=== PATIENT | female | born 1955 | race Caucasian/White ===

== ENCOUNTER 2022-03-04 14:23 | Inpatient (IN) | payer BC ==
[~2022-03-04] VITALS: Ht 157.5 cm; Wt 82.6 kg
[2022-03-04 14:37] VITALS: BP_SYST 150
[2022-03-04 15:22] LABS: BASOPHILS # (AUTO) 0.1 K/uL (0.0-0.2); BASOPHILS % (AUTO) 0.4 % (0.0-2.0); HEMATOCRIT 37.1 % (36-48); HEMOGLOBIN 12.6 g/dL (12.0-16.0); LYMPHOCYTES # (AUTO) 1.4 K/uL (1.0-5.5); LYMPHOCYTES % (AUTO) 7.6 % (20.5-51.5); MEAN CORPUSCULAR HEMOGLOBIN 29 pg (27-31); MEAN CORPUSCULAR HGB CONC 34 % (32-36); MEAN CORPUSCULAR VOLUME 85 fL (79.0-98.0); MONOCYTES # (AUTO) 1.6 K/uL (0.0-1.0); MONOCYTES % (AUTO) 8.6 % (1.7-9.3); NEUTROPHILS # (AUTO) 15.5 K/uL (1.8-7.7); NEUTROPHILS % (AUTO) 83.4 % (40.0-70.0); PLATELET COUNT (AUTO) 274 K/uL (130-430); RED BLOOD CELL COUNT(AUTO) 4.39 MIL/uL (4.2-6.2); RED CELL DISTRIBUTION WIDTH 13.9 % (9.0-15.0); WHITE BLOOD COUNT (AUTO) 18.6 K/uL (4.8-10.8)
[2022-03-04 15:30] LABS: CALCIUM 9.7 mg/dL (8.4-11.0); CREATININE 1.61 mg/dL (0.55-1.30)
[2022-03-04 15:36] LABS: ALBUMIN 3.4 g/dL (3.4-4.8); TOTAL BILIRUBIN 1.5 mg/dL (0.0-1.0)
[2022-03-04 15:39] LABS: BILIRUBIN,URINE 1+ (NEGATIVE); BLOOD, URINE 3+ (NEGATIVE); GLUCOSE,URINE NEGATIVE (NEGATIVE); KETONES,URINE 1+ (NEGATIVE); LEUKOCYTE ESTERASE ,URINE 3+ (NEGATIVE); NITRITE, URINE NEGATIVE (NEGATIVE); PROTEIN URINE 2+ (NEGATIVE)
[2022-03-04 15:50] LABS: CLARITY/URINE HAZY (CLEAR); COLOR,URINE AMBER (YELLOW)
[2022-03-04 15:51] LABS: BACTERIA,URINE MANY /HPF (None Seen); RBC,URINE 0-3 /HPF (0-3); WBC,URINE 80-100 /HPF (0-3)
[2022-03-04 15:52] LABS: MUCUS,URINE None Seen /LPF (None Seen)
[2022-03-04] MEDS ORDERED: PIPERACILLIN/TAZO 3.375 GM in NS 50 ML IV ONE (16:00)
[2022-03-04] MEDS ORDERED: NACL 0.9% 1,000 ML IV ONE (16:00)
--- NOTE | 2022-03-04 16:10 | NUR ---
Dr Fang evaluating patient in the triage room
[2022-03-04] MEDS ORDERED: KETOROLAC TROMETHAMINE 30 MG VIAL IVP ONE (16:15)
--- NOTE | 2022-03-04 16:35 | NUR ---
Pt brought by self, A&Ox4, pt presents to ER with L lower abdominal pain radiating to the back, pt afebrile, skin pink and warm , cap refill <3, will cont to monitor
[2022-03-04] MEDS ORDERED: ONDANSETRON HCL 4 MG/2 ML VIAL IVP PRN (16:45)
[2022-03-04] MEDS ORDERED: PIPERACILLIN/TAZOBACTAM 3.375 GM/VIAL (ZOSYN) IV ONE (17:47)
--- NOTE | 2022-03-04 18:30 | NUR ---
Patient to ER bed H1 to gown for evaluation. Side rails up.
--- NOTE | 2022-03-04 19:10 | NUR ---
Pt administered as ordered, well tolerated, will cont to monitor
--- NOTE | 2022-03-04 19:29 | NUR ---
Report given to Nora CARRANZA
[2022-03-04] MEDS: NACL 0.9% 1,000 ML IV SCH (20:30)
--- NOTE | 2022-03-04 20:31 | NUR ---
CARE ASSUMED AT 1925, PATIENT RESTING IN BED, UPDATED ON PLAN OF CARE, AWARE WILL BE ADMITTED TO THE HOSPITAL AWAITING ROOM ASSIGNMENT. NO S/S OF ANY DISTRESS NOTED AT THIS TIME. IVF INFUSING PER ORDER, WILL CONTINUE TO MONITOR.
[2022-03-04] MEDS ORDERED: DEXTROSE 50% JECT 50 ML DISP.SYRIN IVP PRN (22:00)
[2022-03-04] MEDS ORDERED: INSULIN REGULAR, HUMAN 100 UNITS/ML, 3 ML VIAL (humuLIN R) SUBCUT PRN (22:00)
[2022-03-04] MEDS ORDERED: cloNIDine HCL 0.1 MG TABLET PO PRN (22:00)
[2022-03-05] VITALS: BP_SYST 125
--- NOTE | 2022-03-05 | NUR ---
Resting in [facility] still in the hallway. No beds available in telemetry unit.
[2022-03-05] MEDS ORDERED: PIPERACILLIN/TAZOBACTAM 3.375 GM/VIAL (ZOSYN) IV ONE (01:05)
[2022-03-05] MEDS: PIPERACILLIN/TAZO 3.375/DEX-IS 50 ML IV SCH ×4 (01:06→17:01)
[2022-03-05] MEDS: NACL 0.9% 1,000 ML IV SCH ×3 (02:45→19:57)
[2022-03-05] MEDS: MORPHINE 4 MG INJ. 4 MG/ML VIAL IVP PRN ×2 (03:00→11:58)
--- NOTE | 2022-03-05 03:00 | NUR ---
Patient c/o Left sided abdominal pain 8/ and requesting pain medication. Morphine 4 mg ivp given as per MD orders. will continue to monitor patient for medication effectiveness.
[2022-03-05 04:00] VITALS: BP_SYST 132
[2022-03-05 04:44] LABS: INR 1.2 (0.8-1.2); PROTHROMBIN TIME 11.6 SECS (9.5-12.5)
[2022-03-05 04:45] LABS: ALBUMIN 2.9 g/dL (3.4-4.8); CALCIUM 8.3 mg/dL (8.4-11.0); CREATININE 1.74 mg/dL (0.55-1.30); TOTAL BILIRUBIN 1.4 mg/dL (0.0-1.0); URIC ACID 4.7 mg/dL (2.4-7.0)
--- NOTE | 2022-03-05 05:23 | NUR ---
Patient placed in ER bed 2 for comfort. resting comfortably at this time. Reported no pain currently.
--- NOTE | 2022-03-05 06:00 | NUR ---
CONSULTATION PAGED/CALLED Reason for Consultation: SEPSIS Person Who was Notified: YASH Consulting Physician: Rosalina COREAS Trucksmith Specialty: Ordering Physician: JAVIER
[2022-03-05 07:51] LABS: BASOPHILS # (AUTO) 0.1 K/uL (0.0-0.2); BASOPHILS % (AUTO) 0.4 % (0.0-2.0); EOSINOPHILS # (AUTO) 0.1 K/uL (0.0-0.4); EOSINOPHILS % (AUTO) 0.5 % (0.0-4.0); HEMOGLOBIN 11.5 g/dL (12.0-16.0); LYMPHOCYTES # (AUTO) 1.1 K/uL (1.0-5.5); LYMPHOCYTES % (AUTO) 7.9 % (20.5-51.5); MEAN CORPUSCULAR HEMOGLOBIN 29 pg (27-31); MEAN CORPUSCULAR HGB CONC 34 % (32-36); MEAN CORPUSCULAR VOLUME 85 fL (79.0-98.0); MONOCYTES # (AUTO) 1.2 K/uL (0.0-1.0); MONOCYTES % (AUTO) 8.8 % (1.7-9.3); NEUTROPHILS # (AUTO) 11.7 K/uL (1.8-7.7); NEUTROPHILS % (AUTO) 82.4 % (40.0-70.0); PLATELET COUNT (AUTO) 216 K/uL (130-430); RED BLOOD CELL COUNT(AUTO) 3.98 MIL/uL (4.2-6.2); RED CELL DISTRIBUTION WIDTH 13.9 % (9.0-15.0); WHITE BLOOD COUNT (AUTO) 14.2 K/uL (4.8-10.8)
--- NOTE | 2022-03-05 08:03 | NUR ---
Recieved report from DILLON Pritchett. Pt is alert and oriented x4. Zosyn ABX completed. Pt VSS. Pain level reported at 08/29. IV not flowing. Discontinued IV.
[2022-03-05] MEDS ORDERED: MORPHINE 4 MG INJ. 4 MG/ML VIAL ONE (08:14)
--- NOTE | 2022-03-05 08:35 | NUR ---
Spoke to pt gonzalo Salas, pt gave permission to disclose status.
--- NOTE | 2022-03-05 08:44 | NUR ---
Patient will be admitted to care of [facility]. Admitted to Medsurg unit. Belongings list completed. Complete and up to date summary report printed. SBAR report to be given at bedside with opportunity for questions.
--- NOTE | 2022-03-05 08:45 | NUR ---
Admit bed requested Patient will be admitted to care of . Admitted to Medsurg unit. Diagnosis acute pyelonephritis and hydronephrolosis Inpatient (Yes or No) y Observation (Yes or No) n Orientation concerns or request close to nursing station (Yes or No) n Covid Status neg On vent or bipap n Isolation requirements n Needs a sitter n From Home (Yes or if No enter name of facility) home Requires Dialysis (Yes or No) n Med Rec Completed (Yes of No) pending
--- NOTE | 2022-03-05 08:56 | NUR ---
Patient states unknown medication will await daughter to bring information to the hospital.
--- NOTE | 2022-03-05 08:57 | NUR ---
Diabetic tray served. per MD order. Pt sitting up repositioned without complaint.
--- NOTE | 2022-03-05 10:21 | NUR ---
CONSULTATION PAGED REASON FOR CONSULTATION:HYDRONEPHROSIS , KIDNEY STONE WAS CONSULT CALLED?Y PERSON WHO WAS NOTIFIED:VOICEMAIL LEFT WITH ADRIAN HERRERA CONSULTING PHYSICIAN:ADRIAN HERRERA CHEMISTRY LAB INSTRUCTOR SPECIALTY:UROLOG CHEMISTRY LAB INSTRUCTOR PHONE NUMBER:[phone] REQUESTING PHYSICIAN:RONAL LAI
--- NOTE | 2022-03-05 10:29 | NUR ---
Patient will be [facility]. Admitted to MED Surg unit. Will go to room 135A. Belongings list completed. Complete and up to date summary report printed. SBAR report to be given at bedside with opportunity for questions.
[2022-03-05 11:00] VITALS: BP_SYST 142
[2022-03-05] MEDS: LACTOBACILLUS RHAMNOSUS GG 1 CAP CAPSULE PO SCH ×2 (11:58→21:02)
[2022-03-05] MEDS: DOCUSATE SODIUM 250 MG CAPSULE PO SCH ×2 (11:58→21:03)
[2022-03-05] MEDS ORDERED: ROSU10TA2 PO (12:41)
[2022-03-05] MEDS ORDERED: LOSA100T23 PO (12:41)
[2022-03-05] MEDS ORDERED: ZOLP5TAB2 PO (12:41)
[2022-03-05] MEDS ORDERED: NEU300 PO (12:41)
[2022-03-05] MEDS ORDERED: MAG-AL HYDROX/SIMETH 30 ML UDC PO PRN (16:15)
[2022-03-05] MEDS ORDERED: DIPHENHYDRAMINE INJ 50 MG/ML VIAL IVP PRN (16:15)
--- NOTE | 2022-03-05 16:29 | NUR ---
CONSULTATION PAGED REASON FOR CONSULTATION:LEFT URETERL STONE WAS CONSULT CALLED?Y PERSON WHO WAS NOTIFIED:LEFT A VOICEMAIL WITH AWA CHUA CONSULTING PHYSICIAN:AWA CHUA TEACHER ASSISTANT SPECIALTY:INTERVENTIONAL RADIOLOGY TEACHER ASSISTANT PHONE NUMBER:[phone] REQUESTING PHYSICIAN:ADRIAN HERRERA
[2022-03-05] MEDS ORDERED: PANTOPRAZOLE SODIUM 40 MG/VIAL (PROTONIX) IVP ONE (16:30)
--- NOTE | 2022-03-05 17:41 | NUR ---
1100: ADMITTED UNDER THE CARE OF DR. HERRERA. NO C/O ANY PAIN OR DISCOMFORT @ THIS TIME. CONSULTED WITH ADRIAN SINGH AND DR. Rosalina COREAS, MDS WAS CALLED 1230: STARTED ON IV ANTIBIOTIC ORDERED WILL ASSESS FOR ANY ADVERSE REACTION. 1500: NO ADVERSE REACTION FROM IV ANTIBIOTIC NOTED. 1630: C/O BEING ITCHY DUE TO CONTACT WITH FAMILY MEMBER WHO HAS PET @ HOME AND DYSPEPSIA DR. HERRERA MADE AWARE WITH NEW ORDER NOTED AND CARRIED OUT ORDERED.
[2022-03-05 20:00] VITALS: BP_SYST 110
[2022-03-05] MEDS: GABAPENTIN 300 MG CAPSULE PO SCH (21:03)
[2022-03-05] MEDS: ZOLPIDEM TARTRATE 5 MG TABLET PO PRN (21:09)
[2022-03-06 00:05] VITALS: BP_SYST 118
[2022-03-06] MEDS: PIPERACILLIN/TAZO 3.375/DEX-IS 50 ML IV SCH ×4 (00:16→22:03)
--- NOTE | 2022-03-06 01:30 | NUR ---
rounds Dr. Watts (ID) rounds. changed frequency of IV antibiotic.
[2022-03-06] MEDS: NACL 0.9% 1,000 ML IV SCH ×3 (04:12→15:28)
[2022-03-06] MEDS: MORPHINE 4 MG INJ. 4 MG/ML VIAL IVP PRN ×2 (06:26→22:14)
--- NOTE | 2022-03-06 06:26 | NUR ---
Closing notes Pt AAOx4, pt c/o 10/30 abd/back pain. Medicated with Morphine 4mg IVP as needed. Pt is voiding. IVF infusing at ordered rate R.FA 22G clear and patent. Call light within reach. Bed low, locked, siderails up x2. To endorse to AM nurse.
[2022-03-06 07:13] LABS: BASOPHILS # (AUTO) 0.1 K/uL (0.0-0.2); BASOPHILS % (AUTO) 1.3 % (0.0-2.0); EOSINOPHILS # (AUTO) 0.1 K/uL (0.0-0.4); EOSINOPHILS % (AUTO) 1.2 % (0.0-4.0); HEMATOCRIT 32.4 % (36-48); HEMOGLOBIN 11.1 g/dL (12.0-16.0); LYMPHOCYTES # (AUTO) 0.8 K/uL (1.0-5.5); MEAN CORPUSCULAR HEMOGLOBIN 29 pg (27-31); MEAN CORPUSCULAR HGB CONC 34 % (32-36); MEAN CORPUSCULAR VOLUME 86 fL (79.0-98.0); MONOCYTES % (AUTO) 10.9 % (1.7-9.3); NEUTROPHILS # (AUTO) 7.3 K/uL (1.8-7.7); NEUTROPHILS % (AUTO) 77.6 % (40.0-70.0); PLATELET COUNT (AUTO) 245 K/uL (130-430); RED BLOOD CELL COUNT(AUTO) 3.77 MIL/uL (4.2-6.2); RED CELL DISTRIBUTION WIDTH 13.9 % (9.0-15.0); WHITE BLOOD COUNT (AUTO) 9.4 K/uL (4.8-10.8)
[2022-03-06 07:31] LABS: CALCIUM 8.5 mg/dL (8.4-11.0); CREATININE 1.36 mg/dL (0.55-1.30)
[2022-03-06 08:00] VITALS: BP_SYST 110
--- NOTE | 2022-03-06 08:00 | NUR ---
Initial notes Received patient awake in bed, AAOx4. Respiration even and unlabored, no sign of distress. IV fluids running to right forearm. All safety precaution secured, bed in low position an call light w/in reached.
[2022-03-06] MEDS: PANTOPRAZOLE SODIUM 40 MG/VIAL (PROTONIX) IVP SCH (09:00)
[2022-03-06] MEDS: LACTOBACILLUS RHAMNOSUS GG 1 CAP CAPSULE PO SCH ×2 (09:44→21:15)
[2022-03-06] MEDS: DOCUSATE SODIUM 250 MG CAPSULE PO SCH ×2 (09:44→21:15)
[2022-03-06] MEDS: ATORVASTATIN 20 MG TABLET PO SCH (09:45)
[2022-03-06] MEDS: GABAPENTIN 300 MG CAPSULE PO SCH ×3 (09:45→21:15)
[2022-03-06] MEDS: LOSARTAN POTASSIUM 50 MG TABLET (COZAAR) PO SCH (09:46)
[2022-03-06 12:00] VITALS: BP_SYST 116
--- NOTE | 2022-03-06 12:40 | NUR ---
PATIENT SIGNED CONSENT FOR MIDLINE PLACEMENT
--- NOTE | 2022-03-06 14:29 | NUR ---
Dietitian Recommendations * Continue CCHO * Nursing please document PO intakes * Consider additional high-protein/low-carb snacks or Glucerna ONS if PO intakes suboptimal LP, MS, RD Please refer to Nutrition Assessment for details. Addendum: 03/06/22 at [address] Amended: Links added.
--- NOTE | 2022-03-06 14:46 | NUR ---
NO IV ACCESS, UNABLE TO ADMINISTERED ANTIBIOTICS
[2022-03-06 16:55] VITALS: BP_SYST 141
[2022-03-06] MEDS: HYDROcodone/ACETAMIN 10-325 MG TAB PO PRN ×2 (17:09→19:26)
--- NOTE | 2022-03-06 17:25 | NUR ---
Family at bedside, concerns about patient ADL's, wants patient to be shower, but patient refused.
--- NOTE | 2022-03-06 18:47 | NUR ---
Picc line nurse will be available in an hour to see patient
--- NOTE | 2022-03-06 19:00 | NUR ---
Closing Patient wake in bed, no signs of distress, No IV access antibiotic and protonic IV not given, waiting for midline placement. all safety secured, bed in low position and call light w/in reached will endorse to oncoming nurse.
[2022-03-06 20:28] VITALS: BP_SYST 112
--- NOTE | 2022-03-06 20:28 | NUR ---
Opening notes Pt AAOx4, VSS, afebrile, no s/s distress noted. No IV access, awaiting Midline placement. Call light within reach. Safety maintained. To monitor.
--- NOTE | 2022-03-06 21:18 | NUR ---
PICC nurse at bedside.
--- NOTE | 2022-03-06 21:50 | NUR ---
MIDLINE PLACEMENT Picc line nurse inserted midline ANIL 2 lumens, good blood return. Ok to use. Resume IV fluid/IV antibiotics as ordered.
[2022-03-07 00:05] VITALS: BP_SYST 135
[2022-03-07] MEDS: NACL 0.9% 1,000 ML IV SCH ×4 (01:35→17:11)
[2022-03-07] MEDS: PIPERACILLIN/TAZO 3.375/DEX-IS 50 ML IV SCH ×3 (05:52→21:36)
--- NOTE | 2022-03-07 05:53 | NUR ---
Closing notes Pt awake, resting comfortably. No s/s distress, did not verbalized pain at this time. BS checked 113. IVF infusing at ordered rate ANIL midline. Pt voiding well. Call light within reach. Safety maintained. To endorse to AM nurse.
[2022-03-07 06:41] LABS: BASOPHILS # (AUTO) 0.1 K/uL (0.0-0.2); BASOPHILS % (AUTO) 0.8 % (0.0-2.0); EOSINOPHILS # (AUTO) 0.1 K/uL (0.0-0.4); EOSINOPHILS % (AUTO) 1.5 % (0.0-4.0); HEMATOCRIT 30.1 % (36-48); HEMOGLOBIN 10.5 g/dL (12.0-16.0); LYMPHOCYTES % (AUTO) 11.7 % (20.5-51.5); MEAN CORPUSCULAR HEMOGLOBIN 29 pg (27-31); MEAN CORPUSCULAR HGB CONC 35 % (32-36); MEAN CORPUSCULAR VOLUME 84 fL (79.0-98.0); MONOCYTES # (AUTO) 1.1 K/uL (0.0-1.0); MONOCYTES % (AUTO) 12.9 % (1.7-9.3); NEUTROPHILS # (AUTO) 6.5 K/uL (1.8-7.7); NEUTROPHILS % (AUTO) 73.1 % (40.0-70.0); PLATELET COUNT (AUTO) 245 K/uL (130-430); RED BLOOD CELL COUNT(AUTO) 3.58 MIL/uL (4.2-6.2); RED CELL DISTRIBUTION WIDTH 14.1 % (9.0-15.0); WHITE BLOOD COUNT (AUTO) 8.9 K/uL (4.8-10.8)
[2022-03-07 07:04] LABS: ALBUMIN 2.4 g/dL (3.4-4.8); CALCIUM 8.2 mg/dL (8.4-11.0); CREATININE 1.39 mg/dL (0.55-1.30); TOTAL BILIRUBIN 0.7 mg/dL (0.0-1.0)
[2022-03-07 08:00] VITALS: BP_SYST 148
[2022-03-07] MEDS: ATORVASTATIN 20 MG TABLET PO SCH (10:42)
[2022-03-07] MEDS: GABAPENTIN 300 MG CAPSULE PO SCH ×3 (10:42→21:36)
[2022-03-07] MEDS: DOCUSATE SODIUM 250 MG CAPSULE PO SCH ×2 (10:42→21:36)
[2022-03-07] MEDS: PANTOPRAZOLE SODIUM 40 MG/VIAL (PROTONIX) IVP SCH (10:43)
[2022-03-07] MEDS: LACTOBACILLUS RHAMNOSUS GG 1 CAP CAPSULE PO SCH ×2 (10:43→21:36)
[2022-03-07] MEDS: LOSARTAN POTASSIUM 50 MG TABLET (COZAAR) PO SCH (10:43)
[2022-03-07 12:00] VITALS: BP_SYST 141
[2022-03-07] MEDS ORDERED: POTASSIUM CHLORIDE 20 MEQ TAB.PRT.SR PO ONE (13:30)
[2022-03-07] MEDS: HYDROcodone/ACETAMIN 5-325 MG TAB (NORCO/ VICODIN) PO PRN (16:45)
--- NOTE | 2022-03-07 18:45 | NUR ---
Miss Colon has been assessed as indicated. She has successfully treated for pain 2x this shift. She ambulates to the restroom with no assistance. IVF have been well tolerated via a Left arm PICC that has a good blood return. She was initially hesitant to sign consent for a nephrostomy tube because her daughter had concerns. Pameal kim urology spoke with her daughter for clarification and she agreed to sign. The plan is to have the tube placed to the Left side 03/08/22 at 1000. Miss Colon is presently resting quietly at this time with no s/s of distress or discomfort
--- NOTE | 2022-03-07 19:27 | NUR ---
Handoff has been given to Breann
[2022-03-07 20:00] VITALS: BP_SYST 140
[2022-03-07] MEDS: HYDROcodone/ACETAMIN 10-325 MG TAB PO PRN (21:45)
[2022-03-08 00:10] VITALS: BP_SYST 127
--- NOTE | 2022-03-08 00:20 | NUR ---
Urine sample collected and sent to lab.
[2022-03-08 03:06] LABS: HEPATITIS A AB, IgM Negative (Negative); HEPATITIS B CORE AB, IgM Negative (Negative); HEPATITIS B SURFACE AG Negative (Negative)
[2022-03-08] MEDS: PIPERACILLIN/TAZO 3.375/DEX-IS 50 ML IV SCH ×3 (05:29→21:04)
[2022-03-08] MEDS: NACL 0.9% 1,000 ML IV SCH ×4 (05:29→21:05)
[2022-03-08] MEDS: MORPHINE 4 MG INJ. 4 MG/ML VIAL IVP PRN ×4 (05:35→20:53)
--- NOTE | 2022-03-08 05:35 | NUR ---
Closing notes Pt AAOx4, no s/s distress noted. Pt medicated Morphine 4mg IVP for c/o pain. Pt maintained NPO for L nephrostomy tube placement. BS 113. IVF infusing at ordered rate ANIL midline. Pt ambulates to bathroom to void. Call light within reach. To endorse to AM nurse.
[2022-03-08 06:07] LABS: BASOPHILS # (AUTO) 0.1 K/uL (0.0-0.2); BASOPHILS % (AUTO) 0.6 % (0.0-2.0); EOSINOPHILS # (AUTO) 0.2 K/uL (0.0-0.4); EOSINOPHILS % (AUTO) 1.9 % (0.0-4.0); HEMATOCRIT 29.8 % (36-48); HEMOGLOBIN 10.1 g/dL (12.0-16.0); LYMPHOCYTES # (AUTO) 1.8 K/uL (1.0-5.5); LYMPHOCYTES % (AUTO) 18.4 % (20.5-51.5); MEAN CORPUSCULAR HEMOGLOBIN 29 pg (27-31); MEAN CORPUSCULAR HGB CONC 34 % (32-36); MEAN CORPUSCULAR VOLUME 85 fL (79.0-98.0); MONOCYTES % (AUTO) 10.8 % (1.7-9.3); NEUTROPHILS # (AUTO) 6.6 K/uL (1.8-7.7); NEUTROPHILS % (AUTO) 68.3 % (40.0-70.0); PLATELET COUNT (AUTO) 286 K/uL (130-430); RED BLOOD CELL COUNT(AUTO) 3.51 MIL/uL (4.2-6.2); WHITE BLOOD COUNT (AUTO) 9.6 K/uL (4.8-10.8)
[2022-03-08 06:28] LABS: INR 2.2 (0.8-1.2)
[2022-03-08 06:53] LABS: ALBUMIN 2.3 g/dL (3.4-4.8); CALCIUM 8.6 mg/dL (8.4-11.0); CREATININE 1.41 mg/dL (0.55-1.30); TOTAL BILIRUBIN 0.3 mg/dL (0.0-1.0)
--- NOTE | 2022-03-08 07:30 | NUR ---
OPENING NOTE PT RESTING IN BED WITH NON-LABORED AND EVEN BREATHING. IVF RUNNING ORDERED. NO IV INFILTRATION OR INFECTION NOTED. BED IS LOCKED AND AT LOW POSITION. CALL LIGHT WITHIN REACH. SAFETY PRECAUTION IN PLACE. WILL CONT TO MONITOR
[2022-03-08 08:00] VITALS: BP_SYST 134
[2022-03-08] MEDS: LOSARTAN POTASSIUM 50 MG TABLET (COZAAR) PO SCH (09:00)
[2022-03-08] MEDS: ATORVASTATIN 20 MG TABLET PO SCH (09:00)
[2022-03-08] MEDS: DOCUSATE SODIUM 250 MG CAPSULE PO SCH ×2 (09:00→20:53)
[2022-03-08] MEDS: GABAPENTIN 300 MG CAPSULE PO SCH ×3 (09:00→20:53)
[2022-03-08] MEDS: LACTOBACILLUS RHAMNOSUS GG 1 CAP CAPSULE PO SCH ×2 (09:00→20:53)
[2022-03-08] MEDS: PANTOPRAZOLE SODIUM 40 MG/VIAL (PROTONIX) IVP SCH (09:45)
--- NOTE | 2022-03-08 10:05 | NUR ---
INR TOO HIGH FOR THE PROCEDURE PER IR . WANTS PRIMARY DOCTOR TO CALL HIM REGARDING THIS MATTER. DR.ANDREW MYERS ). WILL PAGE DR. HERRERA.
[2022-03-08 11:35] VITALS: BP_SYST 142
--- NOTE | 2022-03-08 14:40 | NUR ---
NOTES; DR. HERRERA ORDERED REPEAT PTINR DUE TO POSSIBLE LAB ERROR.
--- NOTE | 2022-03-08 14:45 | NUR ---
SPOKE WITH DR. MYERS.
[2022-03-08] MEDS ORDERED: POTASSIUM CHLORIDE 20 MEQ TAB.PRT.SR PO ONE (15:00)
--- NOTE | 2022-03-08 15:16 | NUR ---
AT BEDSIDE, ASSESSING PT
--- NOTE | 2022-03-08 15:23 | NUR ---
NOTES; OKAY TO TAKE MEDS BY MOUTH WITH SIP WATER.
[2022-03-08 15:25] LABS: INR 1.2 (0.8-1.2); PROTHROMBIN TIME 12.1 SECS (9.5-12.5)
--- NOTE | 2022-03-08 15:30 | NUR ---
AWAITING PT/INR RESULT. IF WNL, LET (IR) KNOW. IF SCHEDULE TONIGHT, KEEP NPO STATUS. IF SCHEDULE TMR, PT CAN HAVE DINNER.
[2022-03-08 16:03] VITALS: BP_SYST 128
--- NOTE | 2022-03-08 16:23 | NUR ---
SPOKE TO ([phone]), NPO MIDNIGHT, PROCEDURE WILL BE DONE TMR AM.
--- NOTE | 2022-03-08 16:24 | NUR ---
MADE AWARE THE CURRENT PT/INR.
--- NOTE | 2022-03-08 18:47 | NUR ---
CLOSING NOTE PT RESTING IN BED WITH NON-LABORED AND EVEN BREATHING. IVF RUNNING ORDERED. NO IV INFILTRATION OR INFECTION NOTED. BED IS LOCKED AND AT LOW POSITION. CALL LIGHT WITHIN REACH. SAFETY PRECAUTION IN PLACE. WILL ENDORSE CARE TO HUMAN SERVICES PROGRAM SPECIALIST NURSE.
--- NOTE | 2022-03-08 19:30 | NUR ---
OPENING NOTE Pt is awake lying in bed. No s/s of respiratory distress. Breathing even and unlabored on RA. ANIL midline intact with fluids running at ordered rate. Fall and safety precautions in place with bed in lowest position and call light within reach
[2022-03-08 20:00] VITALS: BP_SYST 160
--- NOTE | 2022-03-08 23:17 | NUR ---
LEFT VOICEMAIL TO DR MYERS due to no 'consent to read' order and no time of surgery in OR schedule for left percutaneous nephrostomy tube placement that is planned for tomorrow
--- NOTE | 2022-03-08 23:30 | NUR ---
PLACED CALL TO DR CARLEY MYERS [phone] WENT TO [employer]ICE [employer]IL. CALLED OFFICE NUMBER NO EXCHANGE TO LEAVE MESSAGE
[2022-03-09] VITALS: BP_SYST 148
--- NOTE | 2022-03-09 00:15 | NUR ---
ROUNDS Pt is lying in bed, eyes closed. Breathing even and unlabored. Fall and safety checks in place
[2022-03-09] MEDS: MORPHINE 4 MG INJ. 4 MG/ML VIAL IVP PRN ×4 (03:19→22:01)
[2022-03-09] MEDS: NACL 0.9% 1,000 ML IV SCH ×2 (03:28→21:45)
[2022-03-09] MEDS: PIPERACILLIN/TAZO 3.375/DEX-IS 50 ML IV SCH ×3 (06:08→21:41)
[2022-03-09 07:04] LABS: BASOPHILS # (AUTO) 0.1 K/uL (0.0-0.2); BASOPHILS % (AUTO) 0.8 % (0.0-2.0); EOSINOPHILS # (AUTO) 0.1 K/uL (0.0-0.4); EOSINOPHILS % (AUTO) 1.4 % (0.0-4.0); HEMATOCRIT 29.9 % (36-48); HEMOGLOBIN 10.5 g/dL (12.0-16.0); LYMPHOCYTES # (AUTO) 1.4 K/uL (1.0-5.5); MEAN CORPUSCULAR HEMOGLOBIN 29 pg (27-31); MEAN CORPUSCULAR HGB CONC 35 % (32-36); MEAN CORPUSCULAR VOLUME 83 fL (79.0-98.0); MONOCYTES # (AUTO) 1.2 K/uL (0.0-1.0); MONOCYTES % (AUTO) 11.2 % (1.7-9.3); NEUTROPHILS # (AUTO) 7.7 K/uL (1.8-7.7); NEUTROPHILS % (AUTO) 73.6 % (40.0-70.0); PLATELET COUNT (AUTO) 303 K/uL (130-430); RED CELL DISTRIBUTION WIDTH 13.9 % (9.0-15.0); WHITE BLOOD COUNT (AUTO) 10.5 K/uL (4.8-10.8)
--- NOTE | 2022-03-09 07:22 | NUR ---
CLOSING NOTE Pt is awake lying in bed. No s/s of respiratory distress. Breathing even and unlabored on RA. ANIL midline intact with fluids running at ordered rate. Pt is NPO for percutaneous nephrostomy tube placement today. All needs throughout shift. Fall and safety precautions in place with bed in lowest position and call light within reach
--- NOTE | 2022-03-09 07:53 | NUR ---
OPENING NOTES: RECEIVED BEDSIDE SBAR FROM PM SHIFT NURSE, PATIENT IS STABLE, NO S/S OF DISTRESS, NON LABOR BREATHING, IV INTACT BED AT LOW AND LOCKED POSITION, CALL LIGHT IN REACH, ALL SAFETY CHECKS DONE AT THIS TIME. WILL MONITOR PATIENT PER ORDERS.
[2022-03-09 07:55] LABS: BILIRUBIN,URINE NEGATIVE (NEGATIVE); BLOOD, URINE 1+ (NEGATIVE); CLARITY/URINE CLEAR (CLEAR); COLOR,URINE YELLOW (YELLOW); GLUCOSE,URINE NEGATIVE (NEGATIVE); KETONES,URINE NEGATIVE (NEGATIVE); LEUKOCYTE ESTERASE ,URINE 2+ (NEGATIVE); NITRITE, URINE NEGATIVE (NEGATIVE); PROTEIN URINE NEGATIVE (NEGATIVE); UROBILINOGEN,URINE 0.2 (0.2-1.0)
[2022-03-09 07:55] LABS: ALBUMIN 2.3 g/dL (3.4-4.8); CALCIUM 8.7 mg/dL (8.4-11.0); CREATININE 1.11 mg/dL (0.55-1.30); TOTAL BILIRUBIN 0.5 mg/dL (0.0-1.0)
[2022-03-09 08:10] LABS: BACTERIA,URINE FEW /HPF (None Seen); MUCUS,URINE 1+ /LPF (None Seen)
[2022-03-09 08:11] LABS: CALCIUM OXALATE CRYSTALS,UR 0-10 /HPF (None Seen)
[2022-03-09] MEDS: LACTOBACILLUS RHAMNOSUS GG 1 CAP CAPSULE PO SCH ×2 (09:00→21:40)
[2022-03-09] MEDS: DOCUSATE SODIUM 250 MG CAPSULE PO SCH ×2 (09:00→21:40)
[2022-03-09] MEDS: POTASSIUM CHLORIDE 20 MEQ TAB.PRT.SR PO SCH (09:00)
[2022-03-09] MEDS: ATORVASTATIN 20 MG TABLET PO SCH (09:00)
[2022-03-09] MEDS: GABAPENTIN 300 MG CAPSULE PO SCH ×3 (09:00→21:40)
[2022-03-09] MEDS: PANTOPRAZOLE SODIUM 40 MG/VIAL (PROTONIX) IVP SCH (09:02)
[2022-03-09 11:19] VITALS: BP_SYST 139
--- NOTE | 2022-03-09 12:27 | NUR ---
PER PATIENT OK TO GIVE DAUGHTER ADEOLA ANY INFORMATION [phone]
[2022-03-09] MEDS ORDERED: fentaNYL CITRATE/PF 100 MCG/2 ML AMP ONE (12:53)
[2022-03-09] MEDS ORDERED: MIDAZOLAM HCL 5 MG/5 ML VIAL ONE ×2 (12:53→13:24)
[2022-03-09] MEDS ORDERED: LIDOCAINE 1% 10 MG/ML, 20 ML MDV ONE (13:00)
[2022-03-09] MEDS ORDERED: NS 100 ML BAG ONE (13:00)
[2022-03-09] MEDS ORDERED: NS 500 ML IV.SOLN IV ONE (13:00)
--- NOTE | 2022-03-09 13:30 | NUR ---
PATIENT OFF THE FLOOR TO SURGERY. STABLE NO S/S OF DISTRESS.
[2022-03-09] MEDS ORDERED: MORPHINE 4 MG INJ. 4 MG/ML VIAL IVP ONE (14:45)
[2022-03-09] MEDS ORDERED: MIDAZOLAM HCL 5 MG/5 ML VIAL IVP ONE (14:45)
[2022-03-09] MEDS ORDERED: MORPHINE 4 MG INJ. 4 MG/ML VIAL ONE ×2 (14:55→15:40)
[2022-03-09] MEDS ORDERED: ONDANSETRON HCL 4 MG/2 ML VIAL IVP ONE (16:30)
[2022-03-09] MEDS ORDERED: NACL 0.9% 2,000 ML IV ONE (16:30)
[2022-03-09] MEDS ORDERED: ONDANSETRON HCL 4 MG/2 ML VIAL ONE (16:32)
--- NOTE | 2022-03-09 17:07 | NUR ---
PATIENT BACK FROM SURGERY, STABLE NO S/S DISTRESS.
--- NOTE | 2022-03-09 18:48 | NUR ---
CLOSING NOTES: PATIENT REMAINS STABLE THOUGHT THE DAY NO S/S OF DISTRESS, NON LABOR BREATHING, BED AT LOW AND LOCKED POSITION CALL LIGHT IN REACH ALL SAFETY CHECKS DONE THOUGHT THE DAY WILL GIVE PM SHIFT NURSE BEDSIDE SBAR.
[2022-03-09 19:40] VITALS: BP_SYST 141
--- NOTE | 2022-03-09 19:40 | NUR ---
INITIAL NOTE AT INITIAL ASSESSMENT, PATIENT IS RESTING IN BED, STABLE, NO SIGNS OF RESPIRATORY DISTRESS,SHE IS SLEEPY BUT AROUSABLE TO VOICE. PATIENT VERBALIZES TOLERABLE PAIN. PLAN OF CARE FOR THE EVENING IS COMMUNICATED WITH THE PATIENT. PATIENT DEMONSTRATES CORRECT USAGE OF CALL LIGHT AT THIS TIME. BED IS LOCKED, ALARMED, AND AT THE LOWEST LEVEL. FALL, SAFETY, RESPIRATORY, AND ASPIRATION PRECAUTIONS WILL BE TAKEN THROUGHOUT THE SHIFT
--- NOTE | 2022-03-09 23:55 | NUR ---
DR. COREAS ROUNDS DR. COREAS IS AT BEDSIDE AT THIS TIME MAKING ROUNDS. NEW ORDER RECEIVED. ALL ORDERS READ BACK AND VERIFIED.
[2022-03-10] VITALS: BP_SYST 144
[2022-03-10] MEDS: HYDROcodone/ACETAMIN 5-325 MG TAB (NORCO/ VICODIN) PO PRN (00:30)
--- NOTE | 2022-03-10 03:45 | NUR ---
PATIENT WOKE UP CONFUSED/HYGIENE CARE PATIENT WOKE UP CONFUSED, HER BED ALARM RANG AND WHEN STAFF ARRIVED AT BEDSIDE, PATIENT WAS WOBBLING STANDING UP AT BEDSIDE, TANGLED UP WITHIN ALL HER TUBINGS. TUBINGS SECURED AND STRAIGHTENED OUT; PATIENT IS REORIENTED AND REPOSITIONED BACK INTO BED FOR COMFORT. SHE IS ASSISTED WITH BEDPAN FOR VOID, HYGIENE CARE PROVIDED, PATIENT TOLERATED WELL.
[2022-03-10] MEDS: MORPHINE 4 MG INJ. 4 MG/ML VIAL IVP PRN (03:47)
[2022-03-10] MEDS: PIPERACILLIN/TAZO 3.375/DEX-IS 50 ML IV SCH ×3 (06:22→21:01)
[2022-03-10] MEDS: NACL 0.9% 1,000 ML IV SCH ×3 (06:22→20:29)
--- NOTE | 2022-03-10 06:49 | NUR ---
CLOSING NOTE PATIENT HAD TOTAL 425 ML RED/CLOUDY OUTPUT FROM HER LEFT NEPHROSTOMY TUBE, IIN ADDITION, SHE HAD 3 LARGE VOIDS. SHE WOKE UP CONFUSED ONCE AND OUT OF BED, BUT REORIENTATION EFFORTS WERE SUCCESSFUL. AT THIS TIME, SHE IS RESTING IN BED, STABLE, NO SIGNS OF RESPIRATORY DISTRESS. CALL LIGHT IS WITHIN REACH OF HAND. BED IS LOCKED, ALARMED, AND AT THE LOWEST LEVEL. FALL, SAFETY, ASPIRATION, AND RESPIRATORY PRECAUTIONS HAVE BEEN IN PLACE THROUGHOUT THE NIGHT. WILL CONTINUE TO MONITOR UNTIL REPORT IS GIVEN AT BEDSIDE TO AM NURSE.
[2022-03-10 07:09] LABS: BASOPHILS # (AUTO) 0.1 K/uL (0.0-0.2); BASOPHILS % (AUTO) 0.4 % (0.0-2.0); EOSINOPHILS % (AUTO) 0.3 % (0.0-4.0); HEMATOCRIT 29.7 % (36-48); HEMOGLOBIN 10.1 g/dL (12.0-16.0); LYMPHOCYTES % (AUTO) 5.7 % (20.5-51.5); MEAN CORPUSCULAR HEMOGLOBIN 29 pg (27-31); MEAN CORPUSCULAR HGB CONC 34 % (32-36); MEAN CORPUSCULAR VOLUME 86 fL (79.0-98.0); MONOCYTES # (AUTO) 1.1 K/uL (0.0-1.0); MONOCYTES % (AUTO) 6.3 % (1.7-9.3); NEUTROPHILS # (AUTO) 14.9 K/uL (1.8-7.7); NEUTROPHILS % (AUTO) 87.3 % (40.0-70.0); PLATELET COUNT (AUTO) 275 K/uL (130-430); RED BLOOD CELL COUNT(AUTO) 3.46 MIL/uL (4.2-6.2); RED CELL DISTRIBUTION WIDTH 14.1 % (9.0-15.0); WHITE BLOOD COUNT (AUTO) 17.1 K/uL (4.8-10.8)
[2022-03-10 07:27] LABS: ALBUMIN 2.2 g/dL (3.4-4.8); CALCIUM 8.4 mg/dL (8.4-11.0); CREATININE 1.72 mg/dL (0.55-1.30); TOTAL BILIRUBIN 0.6 mg/dL (0.0-1.0)
[2022-03-10 08:00] VITALS: BP_SYST 127
--- NOTE | 2022-03-10 08:30 | NUR ---
RECEIVED IN BED A/O X3 ASSESSMENT COMPLETED PLAN OF CARE REVIEWED TEMP 100.9 PT WITH 7 BLANKETS AND EDUCATED ON NOT TO KEEP SO MANY BLANKETS PT RECEPTIVE TO TEACHING WILL CONTINUE TO MONITOR AND ASSESS CALL LIGHT IN REACH
[2022-03-10] MEDS: PANTOPRAZOLE SODIUM 40 MG/VIAL (PROTONIX) IVP SCH (08:41)
[2022-03-10] MEDS: DOCUSATE SODIUM 250 MG CAPSULE PO SCH ×2 (08:41→20:29)
[2022-03-10] MEDS: LACTOBACILLUS RHAMNOSUS GG 1 CAP CAPSULE PO SCH ×2 (08:41→20:29)
[2022-03-10] MEDS: POTASSIUM CHLORIDE 20 MEQ TAB.PRT.SR PO SCH (08:42)
[2022-03-10] MEDS: HYDROcodone/ACETAMIN 10-325 MG TAB PO PRN ×3 (08:42→21:08)
[2022-03-10] MEDS: GABAPENTIN 300 MG CAPSULE PO SCH ×3 (08:42→20:29)
[2022-03-10] MEDS: ATORVASTATIN 20 MG TABLET PO SCH (08:42)
--- NOTE | 2022-03-10 08:50 | NUR ---
PT ENDORSES PAIN AND MEDICATED ORDERED WILL CONTINUE TO MONITOR AND ASSESS CALL LIGHT IN REACH
--- NOTE | 2022-03-10 09:34 | NUR ---
Patient stated she has 7 daughters, one is an RN-she is refusing home health. She plans to go home to [place], [place], in 2 days.
[2022-03-10 12:00] VITALS: BP_SYST 124
--- NOTE | 2022-03-10 15:22 | NUR ---
PT ENDORSES [address] HERRERA PAGED LEFT MESSAGE WITH ARECELI AWAITING A RETURN CALL
[2022-03-10 16:50] VITALS: BP_SYST 118
[2022-03-10 20:00] VITALS: BP_SYST 135
[2022-03-10] MEDS: ZOLPIDEM TARTRATE 5 MG TABLET PO PRN (21:13)
[2022-03-11 00:49] VITALS: BP_SYST 106
[2022-03-11] MEDS: NACL 0.9% 1,000 ML IV SCH ×4 (03:20→21:34)
[2022-03-11] MEDS: PIPERACILLIN/TAZO 3.375/DEX-IS 50 ML IV SCH ×3 (05:10→21:35)
[2022-03-11] MEDS: HYDROcodone/ACETAMIN 10-325 MG TAB PO PRN ×3 (06:18→21:28)
--- NOTE | 2022-03-11 06:51 | NUR ---
Shift Summary: patient is AAOX4. vitals are stable. patient updated on plan of care for shift. patient states she has no questions or concerns at this time. will endorse to oncoming nurse. patient educated to use call light if patient needs to ambulate for any reason and call staff due to patient being high risk for falls. patient states she understands. call light within reach, bed set to low, locked, and alarm on.
--- NOTE | 2022-03-11 07:50 | NUR ---
ASSESSMENT COMPLETED PLAN OF CARE REVIEWED PT DENIES PAIN AT THIS TIME LEFT NEPHROSTOMY TUBE IN PLACE AND PATENT CALL LIGHT IN REACH FAMILY MEMBER AT BEDSIDE NO DISTRESS NOTED WILL CONITNUE TO MONITOR AND ASSESS
[2022-03-11 08:00] VITALS: BP_SYST 137
--- NOTE | 2022-03-11 08:00 | NUR ---
Patient reports that she has been ambulating independently in the room. She no longer needs to use the FWW. Nursing will continue to supervise her for safety. Discharge from Physical Therapy.
[2022-03-11] MEDS: PANTOPRAZOLE SODIUM 40 MG/VIAL (PROTONIX) IVP SCH (08:22)
[2022-03-11] MEDS: POTASSIUM CHLORIDE 20 MEQ TAB.PRT.SR PO SCH (08:22)
[2022-03-11] MEDS: LACTOBACILLUS RHAMNOSUS GG 1 CAP CAPSULE PO SCH ×2 (08:22→21:27)
[2022-03-11] MEDS: GABAPENTIN 300 MG CAPSULE PO SCH ×3 (08:22→21:27)
[2022-03-11] MEDS: DOCUSATE SODIUM 250 MG CAPSULE PO SCH ×2 (08:22→21:27)
[2022-03-11] MEDS: ATORVASTATIN 20 MG TABLET PO SCH (08:22)
[2022-03-11 08:33] LABS: BASOPHILS # (AUTO) 0.1 K/uL (0.0-0.2); BASOPHILS % (AUTO) 0.5 % (0.0-2.0); EOSINOPHILS # (AUTO) 0.2 K/uL (0.0-0.4); EOSINOPHILS % (AUTO) 1.5 % (0.0-4.0); HEMATOCRIT 26.5 % (36-48); HEMOGLOBIN 9.1 g/dL (12.0-16.0); LYMPHOCYTES # (AUTO) 0.8 K/uL (1.0-5.5); LYMPHOCYTES % (AUTO) 5.2 % (20.5-51.5); MEAN CORPUSCULAR HEMOGLOBIN 29 pg (27-31); MEAN CORPUSCULAR HGB CONC 34 % (32-36); MEAN CORPUSCULAR VOLUME 84 fL (79.0-98.0); MONOCYTES # (AUTO) 0.9 K/uL (0.0-1.0); MONOCYTES % (AUTO) 5.8 % (1.7-9.3); NEUTROPHILS # (AUTO) 13.7 K/uL (1.8-7.7); PLATELET COUNT (AUTO) 227 K/uL (130-430); RED BLOOD CELL COUNT(AUTO) 3.16 MIL/uL (4.2-6.2); RED CELL DISTRIBUTION WIDTH 13.6 % (9.0-15.0); WHITE BLOOD COUNT (AUTO) 15.7 K/uL (4.8-10.8)
[2022-03-11 08:41] LABS: CALCIUM 8.3 mg/dL (8.4-11.0); CREATININE 1.18 mg/dL (0.55-1.30)
[2022-03-11 11:25] VITALS: BP_SYST 140
[2022-03-11] MEDS ORDERED: POTASSIUM CHLORIDE 20 MEQ TAB.PRT.SR PO ONE (13:00)
[2022-03-11] MEDS ORDERED: INSULIN REGULAR, HUMAN 100 UNITS/ML, 3 ML VIAL (humuLIN R) SUBCUT PRN (13:15)
[2022-03-11] MEDS ORDERED: DEXTROSE 50% JECT 50 ML DISP.SYRIN IVP PRN (13:15)
[2022-03-11 15:45] VITALS: BP_SYST 138
[2022-03-11 20:06] VITALS: BP_SYST 144
[2022-03-12 00:30] VITALS: BP_SYST 130
[2022-03-12] MEDS: HYDROcodone/ACETAMIN 10-325 MG TAB PO PRN ×4 (06:45→21:13)
[2022-03-12 06:47] VITALS: BP_SYST 133
--- NOTE | 2022-03-12 07:15 | NUR ---
shift assessment completed. pt medicated with [place] for pain to left flank x 2 -2130/0650. ANIL PICC dressing completed last night due to dressing falling out. pt tolerated procedure. am FBS 99. No acute distress noted overnight. DR Watts in room to see pt at 2300, plan is dependent on culture for nephro tube to decide if pt pt will be discharged on oral or iv antibiotics.
--- NOTE | 2022-03-12 07:35 | NUR ---
OPENING NOTES: RECEIVED BEDSIDE SBAR FROM PM SHIFT NURSE, PATIENT STABLE RESTING WITH EYES CLOSED NO S/S OF DISTRESS, IV INTACT, NON LABOR BREATHING, BED AT LOW AND LOCKED POSITION, CALL LIGHT IN REACH, WILL CONT TO MONITOR PATIENT PER ORDERS.
[2022-03-12 08:00] LABS: BASOPHILS # (AUTO) 0.1 K/uL (0.0-0.2); BASOPHILS % (AUTO) 0.4 % (0.0-2.0); EOSINOPHILS # (AUTO) 0.3 K/uL (0.0-0.4); EOSINOPHILS % (AUTO) 2.5 % (0.0-4.0); HEMATOCRIT 28.2 % (36-48); HEMOGLOBIN 9.6 g/dL (12.0-16.0); LYMPHOCYTES # (AUTO) 1.1 K/uL (1.0-5.5); LYMPHOCYTES % (AUTO) 7.8 % (20.5-51.5); MEAN CORPUSCULAR HEMOGLOBIN 29 pg (27-31); MEAN CORPUSCULAR HGB CONC 34 % (32-36); MEAN CORPUSCULAR VOLUME 84 fL (79.0-98.0); MONOCYTES # (AUTO) 0.9 K/uL (0.0-1.0); MONOCYTES % (AUTO) 6.2 % (1.7-9.3); NEUTROPHILS # (AUTO) 11.5 K/uL (1.8-7.7); NEUTROPHILS % (AUTO) 83.1 % (40.0-70.0); PLATELET COUNT (AUTO) 238 K/uL (130-430); RED BLOOD CELL COUNT(AUTO) 3.37 MIL/uL (4.2-6.2); RED CELL DISTRIBUTION WIDTH 13.9 % (9.0-15.0); WHITE BLOOD COUNT (AUTO) 13.8 K/uL (4.8-10.8)
[2022-03-12 08:10] LABS: CALCIUM 8.8 mg/dL (8.4-11.0); CREATININE 1.02 mg/dL (0.55-1.30)
[2022-03-12] MEDS: LACTOBACILLUS RHAMNOSUS GG 1 CAP CAPSULE PO SCH ×2 (09:57→21:06)
[2022-03-12] MEDS: ATORVASTATIN 20 MG TABLET PO SCH (09:57)
[2022-03-12] MEDS: GABAPENTIN 300 MG CAPSULE PO SCH ×3 (09:58→21:06)
[2022-03-12] MEDS: DOCUSATE SODIUM 250 MG CAPSULE PO SCH ×2 (09:58→21:05)
[2022-03-12] MEDS: POTASSIUM CHLORIDE 20 MEQ TAB.PRT.SR PO SCH (09:58)
[2022-03-12] MEDS: PANTOPRAZOLE SODIUM 40 MG/VIAL (PROTONIX) IVP SCH (10:51)
[2022-03-12] MEDS: MORPHINE 4 MG INJ. 4 MG/ML VIAL IVP PRN ×2 (11:41→13:27)
[2022-03-12] MEDS: NACL 0.9% 1,000 ML IV SCH (13:26)
[2022-03-12] MEDS: guaiFENesin/DEXTROMETHORPHAN 10 ML UDC PO PRN (14:01)
[2022-03-12] MEDS ORDERED: IPRATROPIUM/ALBUTEROL SULFATE 3 ML AMPUL.NEB (DUONEB) INH PRN (15:45)
--- NOTE | 2022-03-12 16:26 | NUR ---
SPOKE WITH DR HERRERA MIDLINE IS LEAKING, IF WE CANT ADJUST AND FIX WILL NEED TO BE REPLACED
--- NOTE | 2022-03-12 18:32 | NUR ---
MIDLINE IS NO LONGER LEAKING. DRESSING CHANGED AND CLEAN DRY AND INTACT.
--- NOTE | 2022-03-12 18:32 | NUR ---
CLOSING NOTES: PATIENT REMAINS STABLE TODAY NO S/S OF DISTRESS, NON LABOR BREATHING, IV INTACT BED AT LOW AND LOCKED POSITION CALL LIGHT IN REACH ALL SAFETY CHECKS DONE THOUGHT THE DAY, WILL GIVE PM SHIFT NURSE BEDSIDE SBAR.
[2022-03-13] VITALS: BP_SYST 139
[2022-03-13] MEDS: NACL 0.9% 1,000 ML IV SCH ×2 (00:16→10:04)
[2022-03-13] MEDS: ZOLPIDEM TARTRATE 5 MG TABLET PO PRN (02:05)
[2022-03-13] MEDS: guaiFENesin/DEXTROMETHORPHAN 10 ML UDC PO PRN ×2 (02:05→10:01)
[2022-03-13] MEDS ORDERED: PIPERACILLIN/TAZO 4.5GM/DEX-IS 100 ML IV SCH (06:00)
[2022-03-13] MEDS ORDERED: PIPERACILLIN/TAZOBACTAM 4.5 GM/VIAL (ZOSYN) IV ONE (06:06)
[2022-03-13 08:00] VITALS: BP_SYST 164
--- NOTE | 2022-03-13 08:00 | NUR ---
OPENING NOTES PATIENT IS AOX4. AMBULATORY WITH STEADY GAIT. NO SS OF DISTRESS NOTED. NO SOB NOTED. IVF RUNNING. IV PATENT. VITAL SIGNS OBTAINED, DOCUMENTED. SAFETY PRECAUTIONS IN PLACE AND CALL LIGHT WITHIN REACH.
[2022-03-13] MEDS: DOCUSATE SODIUM 250 MG CAPSULE PO SCH ×2 (09:00→20:39)
[2022-03-13 09:04] LABS: ALBUMIN 2.2 g/dL (3.4-4.8); BASOPHILS % (AUTO) 0.4 % (0.0-2.0); CALCIUM 9.3 mg/dL (8.4-11.0); EOSINOPHILS # (AUTO) 0.3 K/uL (0.0-0.4); EOSINOPHILS % (AUTO) 2.3 % (0.0-4.0); HEMATOCRIT 30.7 % (36-48); HEMOGLOBIN 10.7 g/dL (12.0-16.0); LYMPHOCYTES # (AUTO) 1.2 K/uL (1.0-5.5); LYMPHOCYTES % (AUTO) 9.3 % (20.5-51.5); MEAN CORPUSCULAR HEMOGLOBIN 29 pg (27-31); MEAN CORPUSCULAR HGB CONC 35 % (32-36); MEAN CORPUSCULAR VOLUME 83 fL (79.0-98.0); MONOCYTES # (AUTO) 0.9 K/uL (0.0-1.0); MONOCYTES % (AUTO) 7.2 % (1.7-9.3); NEUTROPHILS # (AUTO) 10.7 K/uL (1.8-7.7); NEUTROPHILS % (AUTO) 80.8 % (40.0-70.0); PLATELET COUNT (AUTO) 291 K/uL (130-430); RED BLOOD CELL COUNT(AUTO) 3.72 MIL/uL (4.2-6.2); TOTAL BILIRUBIN 0.4 mg/dL (0.0-1.0); WHITE BLOOD COUNT (AUTO) 13.2 K/uL (4.8-10.8)
[2022-03-13] MEDS: ATORVASTATIN 20 MG TABLET PO SCH (10:01)
[2022-03-13] MEDS: POTASSIUM CHLORIDE 20 MEQ TAB.PRT.SR PO SCH (10:03)
[2022-03-13] MEDS: GABAPENTIN 300 MG CAPSULE PO SCH ×3 (10:03→20:39)
[2022-03-13] MEDS: HYDROcodone/ACETAMIN 10-325 MG TAB PO PRN (10:03)
[2022-03-13] MEDS: LACTOBACILLUS RHAMNOSUS GG 1 CAP CAPSULE PO SCH ×2 (10:03→20:39)
--- NOTE | 2022-03-13 10:05 | NUR ---
NOTES PATIENT HAS BEEN CLEANED AND LINENS CHANGED. PATIENT STATED HAS PAIN AND REQUEST PAIN MEDICATION. PAIN RATE WAS 8/`10. ADMINISTERED NORCO. PATIENT BACK IN BED. SAFETY PRECAUTIONS IN PLACE AND CALL LIGHT WITHIN REACH.
[2022-03-13] MEDS: PANTOPRAZOLE SODIUM 40 MG/VIAL (PROTONIX) IVP SCH (11:06)
[2022-03-13] MEDS ORDERED: FUROSEMIDE 20 MG/2 ML VIAL IVP ONE (12:00)
[2022-03-13] MEDS ORDERED: cephALEXin 500 MG CAPSULE PO SCH (12:00)
--- NOTE | 2022-03-13 12:00 | NUR ---
NOTES PATIENT IS RESTING, EATING LUNCH. AT BEDSIDE. NO SS OF DISTRESS NOTED. NO SOB NOTED. PATIENT DENIES PAIN AT THIS TIME. SAFETY PRECAUTIONS IN PLACE AND CALL LIGHT WITHIN REACH.
[2022-03-13 12:02] VITALS: BP_SYST 151
[2022-03-13] MEDS: PIPERACILLIN/TAZO 3.375/DEX-IS 50 ML IV SCH ×2 (15:39→21:02)
[2022-03-13 16:23] VITALS: BP_SYST 136
--- NOTE | 2022-03-13 16:49 | NUR ---
notes blood glucose 95 mg/dl. no coverage needed. patient is stable. no change in assessment. safety precautions in place and call light within reach.
--- NOTE | 2022-03-13 19:56 | NUR ---
Closing Notes Patient is resting, in bed. denies pain. No distress noted. Breathing is even and nonlabored, on room air. IVF running. IV patent. Patient is stable. Educated patient on nephrostomy tube care, patient verbalized understanding and repeated back education. All needs met. Safety precautions in place and call light within reach. report given to DILLON Wilson.
[2022-03-13 20:00] VITALS: BP_SYST 127
--- NOTE | 2022-03-13 20:29 | NUR ---
RECEIVED PT LYING IN BED, NO DISTRESS NOTED, C/O LT UPPER AND LT LOWER DISCOMFORT HOWEVER DOES NOT WANT PAIN MEDICATION AT THIS TIME. ABD TENDER TO LIGHT TOUCH. DRSG TO LT FLANK CDI. NEPHROSTOMY TUBE INTACT DRAINING STRAW COLOR DRAINAGE.
[2022-03-14 01:12] VITALS: BP_SYST 135
[2022-03-14] MEDS: PIPERACILLIN/TAZO 3.375/DEX-IS 50 ML IV SCH ×3 (06:01→22:44)
[2022-03-14] MEDS: HYDROcodone/ACETAMIN 5-325 MG TAB (NORCO/ VICODIN) PO PRN ×2 (06:11→22:44)
[2022-03-14 06:12] LABS: BASOPHILS # (AUTO) 0.1 K/uL (0.0-0.2); BASOPHILS % (AUTO) 1.1 % (0.0-2.0); EOSINOPHILS # (AUTO) 0.3 K/uL (0.0-0.4); HEMATOCRIT 32.6 % (36-48); HEMOGLOBIN 11.3 g/dL (12.0-16.0); LYMPHOCYTES # (AUTO) 1.6 K/uL (1.0-5.5); LYMPHOCYTES % (AUTO) 16.2 % (20.5-51.5); MEAN CORPUSCULAR HEMOGLOBIN 29 pg (27-31); MEAN CORPUSCULAR HGB CONC 35 % (32-36); MEAN CORPUSCULAR VOLUME 83 fL (79.0-98.0); MONOCYTES % (AUTO) 9.8 % (1.7-9.3); NEUTROPHILS # (AUTO) 6.8 K/uL (1.8-7.7); NEUTROPHILS % (AUTO) 69.9 % (40.0-70.0); PLATELET COUNT (AUTO) 354 K/uL (130-430); RED BLOOD CELL COUNT(AUTO) 3.95 MIL/uL (4.2-6.2); WHITE BLOOD COUNT (AUTO) 9.8 K/uL (4.8-10.8)
[2022-03-14] MEDS: guaiFENesin/DEXTROMETHORPHAN 10 ML UDC PO PRN (06:18)
[2022-03-14 06:31] LABS: CALCIUM 9.4 mg/dL (8.4-11.0); CREATININE 1.02 mg/dL (0.55-1.30)
[2022-03-14 08:00] VITALS: BP_SYST 151
--- NOTE | 2022-03-14 08:00 | NUR ---
OPENING NOTES PATIENT IS RESTING IN BED, AOX4. AMBULATORY. NO SS OF DISTRESS NOTED. VITAL SIGNS OBTAINED, DOCUMENTED. NO SOB NOTED. DENIES SEVERE PAIN. PATIENT STATED SHE JUST EMPTIED NEPHROSTOMY TUBE. NO LEAKAGE, DRESSING, CLEAN, DRY, AND INTACT. SAFETY PRECAUTIONS IN PLACE AND CALL LIGHT WITHIN REACH.
[2022-03-14] MEDS: DOCUSATE SODIUM 250 MG CAPSULE PO SCH ×2 (09:00→21:24)
[2022-03-14] MEDS: ATORVASTATIN 20 MG TABLET PO SCH (09:06)
[2022-03-14] MEDS: GABAPENTIN 300 MG CAPSULE PO SCH ×3 (09:06→21:24)
[2022-03-14] MEDS: POTASSIUM CHLORIDE 20 MEQ TAB.PRT.SR PO SCH (09:07)
[2022-03-14] MEDS: LACTOBACILLUS RHAMNOSUS GG 1 CAP CAPSULE PO SCH ×2 (09:07→21:24)
[2022-03-14] MEDS: HYDROcodone/ACETAMIN 10-325 MG TAB PO PRN ×2 (09:07→18:26)
[2022-03-14 11:09] VITALS: BP_SYST 124
--- NOTE | 2022-03-14 11:30 | NUR ---
NOTES BLOOD GLUCOSE LEVEL WAS 128 MG/DL. NO COVERAGE NEED. PATIENT ON HER PHONE. NO SS OF DISTRESS NOTED. SAFETY PRECAUTIONS IN PLACE AND CALL LIGHT WITHIN REACH.
--- NOTE | 2022-03-14 12:21 | NUR ---
Nutrition F/U RD reviewed pts current EMR including diet hx, physician notes, nursing notes, pertinent labs/meds/procedures, care trends and care activity. Short note d/t high workload Medical History Comment: PMH: HTN and DM per physician notes Pt also found w/ sepsis, acute L pyelonephritis, L hydronephrosis 2/2 kidney stone, diverticulosis, DM/diet-controlled, and obesity per physician notes Per EMR review, pt agreed to nephrostomy tube placement but will need to F/U once back home in [place] for lithotripsy; plan for IR consult for PCN placement Subjective Information Follow-up is late d/t per LOS 03/11, pt was supposed to be DC on 03/11. RD rounded to pt room and s/w pt. She is a pleasant lady. She attests to having a good appetite sometimes. But sometimes she doesnt feel hungry here or doesnt care for the food. She tries to eat at least part of her meals. RD asked if she would like snacks; RD noted in computrition. Pt denies any GI symptoms at this time. Per EMR review: soft, non-distended w/ active bowel sounds; last BM 03/14 x 3. Pt is likely meeting nutritional needs at this time. Current Diet Order/Nutrition Support Consistent CHO, Na2Gm x 5 days % PO intake Fair avg of 63% x 8 meals Last BM 03/14 x 3 Estimated Energy Expenditure (kcals/day) 4249-9752 (30-35 kcal/kg IBW d/t obesity, sepsis) Estimated Protein Required (g/day) 75-100 (1.5-2 gm/kg IBW d/t obesity, sepsis) Estimated Fluid Required (l/day) 1.3-1.5 (25-30 ml/kg IBW for GERIAT maintenance) Problem/Etiology/Signs/Symptoms Altered nutrition-related labs R/T endocrine dysfunction AEB elevated BG and HgA1c values (ongoing). Expected Outcomes/Goals - Monitor appetite and PO intakes w/ goal of pt meeting >75% of estimated nutritional needs, labs trending WNL, normal GI function, and skin integrity/wt maintenance Dietitian Recommendations * Continue CCHO, Na2Gm diet * Consider additional high-protein/low-carb snacks; RD noted in computrition Follow up *Moderate risk: see pt in 3-5 days GS, MPH, RD
--- NOTE | 2022-03-14 12:25 | NUR ---
Dietitian Recommendations * Continue CCHO, Na2Gm diet * Consider additional high-protein/low-carb snacks; RD noted in computrition GS, MPH, RD Please refer to Nutrition F/U for further details. Thanks!
--- NOTE | 2022-03-14 14:00 | NUR ---
NOTES PATIENT IS RESTING. PATIENT STATED THAT HER NEPHROSTOMY TUBE HAS NOT DRAINING ANY URINE SINCE THE LAST TIME SHE EMPTIED BAG, SINCE 0800/ 0900 . PATIENT STATED TENDERNESS/ PAIN. OFFERED PAIN MEDICATION, PATIENT REFUSED AT THIS TIME. DR. JAVIER LIMON, SPOKE TO PATIENT. DR. COREAS MADE AWARE. PER MD, TO INFORM RADIOLOGY.
[2022-03-14 17:38] VITALS: BP_SYST 139
--- NOTE | 2022-03-14 17:47 | NUR ---
NOTES RENAL ULTRASOUND WAS DONE. NO URINE OUTPUT FROM NEPHROSTOMY STILL. PATIENT DOES NOT REQUEST ANY PAIN MEDS. STABLE. SAFETY PRECAUTIONS IN PLACE AND CALL LIGHT WITHIN REACH.
--- NOTE | 2022-03-14 19:23 | NUR ---
CLOSING NOTES PATIENT IS RESTING. NO SS OF DISTRESS NOTED. BREATHING IS EVEN AND NONLABORED, ON ROOM AIR. IV PATENT. PATIENT DENIES SEVERE PAIN. NO OUTPUT FROM NEPHROSTOMY TUBE SINCE AM. MD AWARE. US RENAL DONE. PATIENT STABLE. ALL NEEDS MET. SAFETY PRECAUTIONS IN PLACE AND CALL LIGHT WITHIN REACH. ENDORSED CARE TO DILLON KIM.
--- NOTE | 2022-03-14 19:37 | NUR ---
RECEIVED PT LYING IN BED, NO DISTRESS NOTED, DENIES PAIN. AAOX4. O2 SAT 97% ON RA. MIDLINE TO LUE SITE CDI. DRSG TO LT FLANK CDI. NO DRAINAGE NOTED IN NEPHROSTOMY BAG. UPDATE GIVEN TO PT'S DAUGHTER ADEOLA.
[2022-03-15] VITALS (7 sets, daily range): BP systolic 113–136
[2022-03-15] MEDS: PIPERACILLIN/TAZO 3.375/DEX-IS 50 ML IV SCH ×3 (05:26→21:55)
[2022-03-15] MEDS: guaiFENesin/DEXTROMETHORPHAN 10 ML UDC PO PRN ×2 (05:34→09:23)
[2022-03-15 06:27] LABS: BASOPHILS # (AUTO) 0.1 K/uL (0.0-0.2); EOSINOPHILS # (AUTO) 0.3 K/uL (0.0-0.4); EOSINOPHILS % (AUTO) 2.9 % (0.0-4.0); HEMATOCRIT 32.8 % (36-48); HEMOGLOBIN 11.4 g/dL (12.0-16.0); LYMPHOCYTES % (AUTO) 19.8 % (20.5-51.5); MEAN CORPUSCULAR HEMOGLOBIN 29 pg (27-31); MEAN CORPUSCULAR HGB CONC 35 % (32-36); MEAN CORPUSCULAR VOLUME 82 fL (79.0-98.0); MONOCYTES # (AUTO) 0.9 K/uL (0.0-1.0); MONOCYTES % (AUTO) 9.2 % (1.7-9.3); NEUTROPHILS # (AUTO) 6.7 K/uL (1.8-7.7); NEUTROPHILS % (AUTO) 67.1 % (40.0-70.0); PLATELET COUNT (AUTO) 393 K/uL (130-430); RED BLOOD CELL COUNT(AUTO) 3.99 MIL/uL (4.2-6.2); RED CELL DISTRIBUTION WIDTH 14.1 % (9.0-15.0); WHITE BLOOD COUNT (AUTO) 9.9 K/uL (4.8-10.8)
[2022-03-15 07:04] LABS: CALCIUM 9.4 mg/dL (8.4-11.0); CREATININE 1.15 mg/dL (0.55-1.30)
[2022-03-15] MEDS: DOCUSATE SODIUM 250 MG CAPSULE PO SCH ×2 (08:20→21:50)
[2022-03-15] MEDS: HYDROcodone/ACETAMIN 10-325 MG TAB PO PRN ×2 (08:33→14:11)
[2022-03-15] MEDS: LACTOBACILLUS RHAMNOSUS GG 1 CAP CAPSULE PO SCH ×2 (08:34→21:50)
[2022-03-15] MEDS: ATORVASTATIN 20 MG TABLET PO SCH (08:34)
[2022-03-15] MEDS: POTASSIUM CHLORIDE 20 MEQ TAB.PRT.SR PO SCH (08:34)
[2022-03-15] MEDS: GABAPENTIN 300 MG CAPSULE PO SCH ×3 (08:34→21:50)
--- NOTE | 2022-03-15 14:35 | NUR ---
Patient's primary care doctor in [place] is Dr. Fay Xiong [phone].
--- NOTE | 2022-03-15 19:07 | NUR ---
RECEIVED, PT IN BED, AOX4, VSS. EVEN AND UNLABORED BREATHING, PICC LINE TO ANIL PATENT, COLLECTED URINE SAMPLE FOR UA AND CULTURE, SAMPLE SEN T TO LAB, NOTED LEFT NEPHROSTOMY, PT AMBULATORY TO RESTROOM, INSTRUCTED PT SHE'S STARTING NPO AFTER MN AND TO CALL FOR SPUTUM COLLECTION BUT PT REFUSED STATING HER COUGH HAD GONE DOWN. CALL LIGHT WITHIN REACH.
[2022-03-15 20:55] LABS: BILIRUBIN,URINE NEGATIVE (NEGATIVE); BLOOD, URINE 1+ (NEGATIVE); CLARITY/URINE SL CLOUDY (CLEAR); COLOR,URINE YELLOW (YELLOW); GLUCOSE,URINE NEGATIVE (NEGATIVE); KETONES,URINE NEGATIVE (NEGATIVE); LEUKOCYTE ESTERASE ,URINE 2+ (NEGATIVE); NITRITE, URINE NEGATIVE (NEGATIVE); PH,URINE 6.5 (5.0-8.0); PROTEIN URINE NEGATIVE (NEGATIVE); UROBILINOGEN,URINE 0.2 (0.2-1.0)
[2022-03-15 21:11] LABS: BACTERIA,URINE MODERATE /HPF (None Seen)
[2022-03-16 01:49] VITALS: BP_SYST 118
[2022-03-16] MEDS: PIPERACILLIN/TAZO 3.375/DEX-IS 50 ML IV SCH ×3 (06:04→21:26)
--- NOTE | 2022-03-16 06:49 | NUR ---
PT AOX4, DENIED SOB, CP, N/V OR ANY PAIN, LEFT FLANK NEPHROSTOMY TUBE STILL IN PLACE, V/S, RECEIVED DUE MED AND TOLERATED WELL, NPO FROM MN, AMBULATORY TO THE RESTROOM, VOIDING W/O DIFFICULTY, UA AND URINE CULTURE SENT DURING SHIFT, PT REFUSED TO PROVIDE SPUTUM SAMPLE, OR CHECKLIST INITIATED THIS SHIFT, PT IN STABLE CONDITION, WILL BE ENDORSED TO AM RN
[2022-03-16 07:17] LABS: BASOPHILS # (AUTO) 0.1 K/uL (0.0-0.2); BASOPHILS % (AUTO) 0.7 % (0.0-2.0); EOSINOPHILS # (AUTO) 0.1 K/uL (0.0-0.4); EOSINOPHILS % (AUTO) 0.8 % (0.0-4.0); HEMATOCRIT 31.7 % (36-48); LYMPHOCYTES # (AUTO) 1.9 K/uL (1.0-5.5); LYMPHOCYTES % (AUTO) 13.7 % (20.5-51.5); MEAN CORPUSCULAR HEMOGLOBIN 29 pg (27-31); MEAN CORPUSCULAR HGB CONC 35 % (32-36); MEAN CORPUSCULAR VOLUME 83 fL (79.0-98.0); MONOCYTES % (AUTO) 7.1 % (1.7-9.3); NEUTROPHILS # (AUTO) 10.5 K/uL (1.8-7.7); NEUTROPHILS % (AUTO) 77.7 % (40.0-70.0); PLATELET COUNT (AUTO) 416 K/uL (130-430); RED BLOOD CELL COUNT(AUTO) 3.84 MIL/uL (4.2-6.2); RED CELL DISTRIBUTION WIDTH 13.6 % (9.0-15.0)
[2022-03-16 07:29] LABS: WHITE BLOOD COUNT (AUTO) 13.5 K/uL (4.8-10.8)
[2022-03-16 07:32] LABS: ALBUMIN 2.6 g/dL (3.4-4.8); CALCIUM 9.1 mg/dL (8.4-11.0); CREATININE 1.25 mg/dL (0.55-1.30); TOTAL BILIRUBIN 0.5 mg/dL (0.0-1.0)
[2022-03-16 07:54] LABS: INR 1.2 (0.8-1.2); PROTHROMBIN TIME 11.8 SECS (9.5-12.5)
[2022-03-16 08:00] VITALS: BP_SYST 129
[2022-03-16] MEDS: GABAPENTIN 300 MG CAPSULE PO SCH ×3 (09:00→21:12)
[2022-03-16] MEDS: DOCUSATE SODIUM 250 MG CAPSULE PO SCH ×3 (09:00→21:12)
[2022-03-16] MEDS ORDERED: NALOXONE HCL 0.4 MG/ML AMP (NARCAN) IVP PRN (09:00)
[2022-03-16] MEDS: HYDROcodone/ACETAMIN 10-325 MG TAB PO PRN ×3 (09:11→21:20)
--- NOTE | 2022-03-16 12:00 | NUR ---
A/Ox4,vss,midline in left arm with small leaking noted,dressing changed to midline and flushed with NS well.keep pt NPO for left nephrostomy tube placement by IR.
[2022-03-16] MEDS ORDERED: fentaNYL CITRATE/PF 100 MCG/2 ML AMP ONE (12:37)
[2022-03-16] MEDS ORDERED: MIDAZOLAM HCL 5 MG/5 ML VIAL ONE (12:38)
[2022-03-16 12:59] VITALS: BP_SYST 124
[2022-03-16] MEDS ORDERED: LIDOCAINE 1%, 20 ML MDV 20 ML ONE (13:11)
[2022-03-16] MEDS: POTASSIUM CHLORIDE 20 MEQ TAB.PRT.SR PO SCH (14:29)
[2022-03-16] MEDS: ATORVASTATIN 20 MG TABLET PO SCH (14:29)
[2022-03-16] MEDS: LACTOBACILLUS RHAMNOSUS GG 1 CAP CAPSULE PO SCH ×2 (14:29→21:12)
--- NOTE | 2022-03-16 14:30 | NUR ---
pt back from radiology,has left nephrostomy tube replaced and draining pinkish urine urine culture sent to lab per david in radiology,midline in left upper arm remains patent and intact,resumed meds and IV antibiotic,pt tolerated well.needs attended,call light & personal items within pt reach,safety maintained.
[2022-03-16 16:09] LABS: CLARITY/URINE CLOUDY (CLEAR); PH,URINE 7.5 (5.0-8.0); PROTEIN URINE 3+ (NEGATIVE)
[2022-03-16 16:10] LABS: BILIRUBIN,URINE NEGATIVE (NEGATIVE); BLOOD, URINE 3+ (NEGATIVE); GLUCOSE,URINE NEGATIVE (NEGATIVE); KETONES,URINE NEGATIVE (NEGATIVE); LEUKOCYTE ESTERASE ,URINE 3+ (NEGATIVE); NITRITE, URINE NEGATIVE (NEGATIVE); UROBILINOGEN,URINE 0.2 (0.2-1.0)
[2022-03-16 16:21] LABS: BACTERIA,URINE RARE /HPF (None Seen); MUCUS,URINE None Seen /LPF (None Seen); RBC,URINE 20-50 /HPF (0-3); WBC,URINE >100 /HPF (0-3)
[2022-03-16 16:39] VITALS: BP_SYST 121
[2022-03-16 19:07] VITALS: BP_SYST 141
--- NOTE | 2022-03-16 19:16 | NUR ---
RECEIVED PT IN BED, AOX4, EVEN AND UNLABORED BREATHING, DENIED SOB, N/V OR ANY PAIN, LEFT NEPHROSTOMY INTACT, NO ACTIVE BLEEDING, CONTACTED TO DRAINAGE BAG WITH 100ML OF SLIGHLY RED URINE, V/S CHECKED AND STABLE, ON CCHO DIET, BRP , LOW BED, CALL LIGHT WITHIN REACH, WILL CONTINUE WITH PLAN OF CARE
[2022-03-17] VITALS: BP_SYST 142
[2022-03-17] MEDS: PIPERACILLIN/TAZO 3.375/DEX-IS 50 ML IV SCH ×3 (05:47→22:35)
[2022-03-17] MEDS: HYDROcodone/ACETAMIN 10-325 MG TAB PO PRN ×3 (05:55→13:49)
--- NOTE | 2022-03-17 06:27 | NUR ---
PT AOX4, DENIED SOB, CP, N/V OR ANY PAIN, LEFT FLANK NEPHROSTOMY TUBE INTACT AND DRAINING UNDER GRAVITY, 300MLS OF URINE DURING THIS SHIFT, V/SS, RECEIVED DUE MED AND TOLERATED WELL, BACK PAIN CONTROLLED WITH NORCO, TOLERATING CCHO DIET, AMBULATORY TO THE RESTROOM, VOIDING W/O DIFFICULTY, LATE BM TODAY, ACCUCHECK W/O INSULIN COVERAGE, PT IN STABLE CONDITION, SAFETY PREC. MAINTAINED, WILL BE ENDORSED TO DANIEL CARRANZA
[2022-03-17 07:27] LABS: BASOPHILS # (AUTO) 0.1 K/uL (0.0-0.2); BASOPHILS % (AUTO) 0.8 % (0.0-2.0); EOSINOPHILS # (AUTO) 0.1 K/uL (0.0-0.4); EOSINOPHILS % (AUTO) 0.9 % (0.0-4.0); LYMPHOCYTES # (AUTO) 1.5 K/uL (1.0-5.5); LYMPHOCYTES % (AUTO) 15.9 % (20.5-51.5); MEAN CORPUSCULAR HEMOGLOBIN 28 pg (27-31); MEAN CORPUSCULAR HGB CONC 34 % (32-36); MEAN CORPUSCULAR VOLUME 83 fL (79.0-98.0); MONOCYTES # (AUTO) 0.9 K/uL (0.0-1.0); MONOCYTES % (AUTO) 8.9 % (1.7-9.3); NEUTROPHILS # (AUTO) 7.1 K/uL (1.8-7.7); NEUTROPHILS % (AUTO) 73.5 % (40.0-70.0); PLATELET COUNT (AUTO) 415 K/uL (130-430); RED BLOOD CELL COUNT(AUTO) 3.86 MIL/uL (4.2-6.2); RED CELL DISTRIBUTION WIDTH 14.2 % (9.0-15.0); WHITE BLOOD COUNT (AUTO) 9.6 K/uL (4.8-10.8)
[2022-03-17 07:33] LABS: CALCIUM 9.4 mg/dL (8.4-11.0); CREATININE 1.12 mg/dL (0.55-1.30)
[2022-03-17 07:50] VITALS: BP_SYST 149
[2022-03-17] MEDS: DOCUSATE SODIUM 250 MG CAPSULE PO SCH ×2 (09:00→21:00)
[2022-03-17] MEDS: GABAPENTIN 300 MG CAPSULE PO SCH ×3 (09:17→22:34)
[2022-03-17] MEDS: LACTOBACILLUS RHAMNOSUS GG 1 CAP CAPSULE PO SCH ×2 (09:18→22:34)
[2022-03-17] MEDS: POTASSIUM CHLORIDE 20 MEQ TAB.PRT.SR PO SCH (09:18)
[2022-03-17] MEDS: ATORVASTATIN 20 MG TABLET PO SCH (09:18)
--- NOTE | 2022-03-17 10:45 | NUR ---
DOCTOR HERRERA ROUNDING FOR PATIENT.
--- NOTE | 2022-03-17 12:11 | NUR ---
PATIENT SLEEPING AND DID NOT SLEEP LAST NIGHT. WILL FOLLOW UP BLOOD GLUCOSE 1600.
[2022-03-17 14:15] VITALS: BP_SYST 142
--- NOTE | 2022-03-17 15:56 | NUR ---
PER MARION JONES, PATIENT SAYS SHE HAS APPROVAL FROM [facility] FOR HER UROLOGY CARE.
--- NOTE | 2022-03-17 16:22 | NUR ---
PATIENT PARTICIPATION IN WRIST/HAND XRAY IS POOR AGAIN. UNABLE TO OBTAIN USEFUL IMAGE FOR EVALUATION. Addendum: 03/17/22 at 1909 by Fiona Talavera RN RN wrong patient disregard
[2022-03-17 18:12] VITALS: BP_SYST 143
[2022-03-17 20:00] VITALS: BP_SYST 156
[2022-03-18] MEDS: PIPERACILLIN/TAZO 3.375/DEX-IS 50 ML IV SCH ×2 (07:05→14:13)
[2022-03-18 07:23] VITALS: BP_SYST 131
[2022-03-18 08:08] VITALS: BP_SYST 131
[2022-03-18] MEDS: DOCUSATE SODIUM 250 MG CAPSULE PO SCH (08:32)
[2022-03-18] MEDS: GABAPENTIN 300 MG CAPSULE PO SCH ×2 (08:41→14:13)
[2022-03-18] MEDS: POTASSIUM CHLORIDE 20 MEQ TAB.PRT.SR PO SCH (08:41)
[2022-03-18] MEDS: LACTOBACILLUS RHAMNOSUS GG 1 CAP CAPSULE PO SCH (08:41)
[2022-03-18] MEDS: ATORVASTATIN 20 MG TABLET PO SCH (08:41)
[2022-03-18] MEDS: HYDROcodone/ACETAMIN 10-325 MG TAB PO PRN ×3 (12:02→19:13)
[2022-03-18 12:47] VITALS: BP_SYST 141
--- NOTE | 2022-03-18 13:23 | NUR ---
Daughter of patient at bedside. Discussion about possible evaluation by MD today because they would like a Urologist to see what can be done in the hospital.
--- NOTE | 2022-03-18 15:08 | NUR ---
CALL TO DOCTOR JAVIER FOR ANTIBIOTIC LEVAQUIN 500 MG PO DAILY FOR TWO WEEKS PRESCRIPTION PER DOCTOR COREAS. PATIENT ALSO REQUESTS MEDICATION FOR PAIN.
[2022-03-18] MEDS ORDERED: levoFLOXacin 500 MG TABLET PO ONE (15:30)
[2022-03-18 16:00] VITALS: BP_SYST 135
--- NOTE | 2022-03-18 19:12 | NUR ---
DOCTOR JAVIER ASKS TO GIVE PATIENT ONE MORE NORCO PRIOR TO DEPARTURE BECAUSE PATIENT WILL NOT BE ABLE TO GET HER RX TONIGHT. PATIENT AGREES WITH DOCTOR AND WOULD LIKE NORCO TAB.
--- NOTE | 2022-03-18 19:20 | NUR ---
CHANGE OF SHIFT: endorsed by day shift, with discharge order tonight . discharge instructions already given and prescriptions as ordered.
--- NOTE | 2022-03-18 19:40 | NUR ---
NOTES: pt. checked and just waiting for her daughter. needs attended. instructed to call when her ride is here.
--- NOTE | 2022-03-18 21:30 | NUR ---
NOTES: pt. discharged via wheelchair in stable condition, accompanied by her daughter.
--- NOTE | 2022-03-19 10:56 | NUR ---
Paged Dr. Hudson, per Ginette's request.
--- NOTE | 2022-03-19 11:54 | NUR ---
DAUGHTER ANEESH CALLED AND STATED THAT PRESCRIPTION GIVEN BY DR HERRERA WAS NOT AVAILABLE, NORCO AND LEVAQUIN NOT AVAILABLE AT [address] CALL [address]ACED TO [address] HERRERA AND INFORMATION GIVEN, DR HERRERA CAME BY ER WITH NEW PRESCRIPTION. WILL GET OLD PRESCRIPTION FROM FAMILY. NEW PRESCRIPTION FOR TYLENOL #3, CIPRO, PROBIOTIC.
== END 2022-03-18 21:13 | disposition home or self-care (01) | DRG 871 ==
LOC: SED 14:23 → SMU 16:39 → STU 03-09 17:07 → SMU 03-12 11:09
PROVIDERS: ADMIT Internal Medicine; ATTEND Internal Medicine
PROC: BT12ZZZ Fluoroscopy of Left Kidney (ICD-10-PCS; 2022-03-09)
PROC: 0T943ZZ Drainage of Left Kidney Pelvis, Percutaneous Approach (ICD-10-PCS; principal; 2022-03-09 12:57)
PROC: 0TP5X0Z Removal of Drainage Device from Kidney, External Approach (ICD-10-PCS; 2022-03-16)
PROC: 0T943ZZ Drainage of Left Kidney Pelvis, Percutaneous Approach (ICD-10-PCS; 2022-03-16)
PROC: BT12ZZZ Fluoroscopy of Left Kidney (ICD-10-PCS; 2022-03-16)
DX: A41.9 Sepsis, unspecified organism (principal); E43 Unspecified severe protein-calorie malnutrition; N13.6 Pyonephrosis; N17.9 Acute kidney failure, unspecified; K75.9 Inflammatory liver disease, unspecified; D64.9 Anemia, unspecified; Z20.822 Contact with and (suspected) exposure to COVID-19; I12.9 Hypertensive chronic kidney disease with stage 1 through stage 4 chronic kidney disease, or unspecified chronic kidney disease; E11.22 Type 2 diabetes mellitus with diabetic chronic kidney disease; N18.9 Chronic kidney disease, unspecified; E66.9 Obesity, unspecified; K76.0 Fatty (change of) liver, not elsewhere classified; K57.30 Diverticulosis of large intestine without perforation or abscess without bleeding; Z90.49 Acquired absence of other specified parts of digestive tract; Z68.33 Body mass index [BMI] 33.0-33.9, adult
CPT/HCPCS: 36415; 50432; 71045; 71250-TC; 76000; 76376; 76770; 76942-TC; 77012; 80048; 80053; 81000; 82962; 83036; 83605; 83690; 83880; 84550; 85025; 85610-TC; 85730-TC; 86705; 86709; 86886; 86900; 86901; 87040; 87086; 87340; 93005; 93306; 99285; C1729; C1750; C1769; C9113; G0378; J1200; J1815; J1885; J1940; J2001; J2250; J2270; J2405; J2543; J3010; J7030; J7040; Q9967